=== PATIENT | male | born 1990 | race Caucasian/White ===

== ENCOUNTER 2016-07-24 17:25 | Emergency (ER) | payer OTHER ==
--- NOTE | 2016-07-24 17:47 | ED ---
General Adult HPI - General Stated complaint: left rib pain Time Seen by Provider: 07/24/16 17:36 Source: RN notes reviewed - History of Present Illness Initial comments: 25-year-old male presents emergency Department chief complaint of left-sided chest wall pain. Patient was moving a dresser and he came down and fell onto the left side of his chest. Patient states that yesterday. Patient states she' s had pain over the left side of his chest. Patient states it hurts to cough last for brief. Patient states the pain has just Been continuing so he was concerned. They deny any fever or chills. The patient denies any shortness of breath with this. There is no other symptoms at this time.Patient denies any recent fever, chills, shortness of breath, back pain, abdominal pain, nausea vomiting, numbness or tingling, dysuria or hematuria, constipation or diarrhea, headaches or visual changes, or any other current symptoms. - Related Data Previous Rx's Medication Instructions Recorded Hydrocodone/Acetaminophen [[place] 1 each PO Q6HR PRN #20 tab 07/24/16 5-325] Allergies Allergy/AdvReac Type Severity Reaction Status Date / Time ibuprofen [From Motrin] Allergy Rash/Hives Verified 07/24/16 17:54 ketorolac tromethamine Allergy Rash/Hives Verified 07/24/16 17:54 [From Toradol] Penicillins Allergy Anaphylaxis Verified 07/24/16 17:54 tramadol Allergy Itching Verified 07/24/16 17:54 Review of Systems ROS Statement: Those systems with pertinent positive or pertinent negative responses have been documented in the HPI. ROS Other: All systems not noted in ROS Statement are negative. Past Medical History Past Medical History: No Reported History, Cancer Additional Past Medical History / Comment(s): lung and prostate cancer History of Any Multi-Drug Resistant Organisms: None Reported Past Surgical History: Tonsillectomy Additional Past Surgical History / Comment(s): hemrroidectomy x3, Past Psychological History: Bipolar, Schizophrenia Smoking Status: Current every day smoker Past Alcohol Use History: Daily, Occasional Past Drug Use History: Marijuana General Exam - General Exam Comments Initial Comments: General: The patient is awake and alert, in no distress, and does not appear acutely ill. Eye: Pupils are equal, round. Ears, nose, mouth and throat: There are moist mucous membranes and no oral lesions. Neck: The neck is supple, there is no tenderness Chest wall: There is tenderness in left lower chest wall no bruising or deformity noted. Cardiovascular: There is a regular rate and rhythm. No murmur, rub or gallop is appreciated. Respiratory: Lungs are clear to auscultation, respirations are non-labored, breath sounds are equal. No wheezes, stridor, rales, or rhonchi. Gastrointestinal: Soft, non-distended, non-tender abdomen without masses or organomegaly noted. There is no rebound or guarding present. No CVA tenderness. Bowel sounds are unremarkable. Back: There is no tenderness to palpation in the midline. There is no obvious deformity. No rashes noted. Musculoskeletal: Normal ROM, no tenderness, There is no pedal edema. There is no calf tenderness or swelling. Sensation intact. Pulses equal bilaterally 2+. Neurological: CN II-XII intact, There are no obvious motor or sensory deficits. Coordination appears grossly intact. Speech is normal. Skin: Skin is warm and dry and no rashes or lesions are noted. Psychiatric: Cooperative, appropriate mood & affect, normal judgment. Course Vital Signs 07/24/16 07/24/16 17:35 18:47 Temperature 99.2 F 98.7 F Pulse Rate 62 98 Respiratory 20 20 Rate Blood Pressure 134/88 137/86 O2 Sat by Pulse 99 100 Oximetry Medical Decision Making - Medical Decision Making 25-year-old male presents to emergency room chief complaint of left-sided chest wall pain. This time patient's x-ray. Chest x-ray shows a left rib fracture. This time we will start patient on pain medication. We did discuss return parameters and follow-up. We discussed all the patient's family's questions. He stated they understood. This time patient will be discharged home. - Radiology Data Radiology results: report reviewed, image reviewed Disposition Clinical Impression: Left rib fracture Disposition: HOME SELF-CARE Condition: Stable Instructions: Rib Fracture (ED) Additional Instructions: Please use medication as discussed. Please follow up with family doctor if symptoms have not improved over the next two days. Please return to the emergency room if your symptoms increase or worsen or for any other concerns. Prescriptions: Hydrocodone/Acetaminophen [[place] 5-325] 1 each PO Q6HR PRN #20 tab PRN Reason: Pain Referrals: Cait Oquendo MD [STAFF PHYSICIAN] - 1-2 days Time of Disposition: 19:33
[2016-07-24 19:18] VITALS: TEMP 98.7
--- NOTE | 2016-07-24 19:31 | XR ---
EXAMINATION TYPE: XR ribs LT w pa chest xray DATE OF EXAM: 07/24/2016 5:51 PM COMPARISON: NONE HISTORY: Left anterior lower rib pain after trauma TECHNIQUE: 6 views were obtained. FINDINGS: On one of the views there is a subtle cortical step-off at the outer cortex of the anterola teral seventh rib with associated soft tissue swelling, consistent with nondisplaced fracture. There is no pneumothorax. No pleural effusion. No other findings. IMPRESSION: Nondisplaced left seventh anterolateral rib fracture.
[2016-07-24 19:39] VITALS: BP 121/77; PULSE 78; RESP 16
== END 2016-07-24 19:39 | disposition home or self-care (01) ==
LOC: EC 17:25
DX: S22.32XA Fracture of one rib, left side, initial encounter for closed fracture (principal); W22.8XXA Striking against or struck by other objects, initial encounter; Z88.0 Allergy status to penicillin; Z88.6 Allergy status to analgesic agent; Z85.46 Personal history of malignant neoplasm of prostate; F17.200 Nicotine dependence, unspecified, uncomplicated
CPT/HCPCS: 99283

== ENCOUNTER 2017-02-15 11:43 | Emergency (ER) | payer OTHER ==
[2017-02-15 11:58] VITALS: RESP 16; TEMP 98
[2017-02-15] MEDS ORDERED: SODIUM CHLORIDE 0.9% 1,000 ML IV STA (12:20)
[2017-02-15] MEDS ORDERED: ONDANSETRON 4 MG/2 ML VIAL IVP STA (12:20)
--- NOTE | 2017-02-15 12:21 | ED ---
General Adult HPI - General Chief complaint: Abdominal Pain Stated complaint: poss kidney infection Time Seen by Provider: 02/15/17 12:09 Source: patient, RN notes reviewed Mode of arrival: ambulatory Limitations: no limitations - History of Present Illness Initial comments: Patient 26-year-old male who presents emergency room today with chief complaint of symptoms of dysuria. He does admit that over the last 3 days she's been having some burning on urination. He does admit that he went to a walk-in clinic was told that he had a urinary tract infection but was unsure if it could be possible kidney stone. He states that he was advised that if symptoms increase the patient come to the emergency room. He does admit that he is having increased pain in his lower back. He doesn't that he's had some radiation around down to the lower testicles bilaterally. He states the pain does seem to come and go. He does admit that is still expressing dysuria. He admits to feeling nauseated. States felt lightheaded at times. Denies any other complaints or symptoms at this time. Patient denies any recent fever, chills, shortness of breath, chest pain, vomiting, numbness or tingling, hematuria, constipation or diarrhea, headaches or visual changes, or any other complaints. - Related Data Home Medications Medication Instructions Recorded Confirmed Ciprofloxacin HCl [Cipro] 500 mg PO Q12HR 02/15/17 02/15/17 Ibuprofen [Motrin] 800 mg PO DAILY PRN 02/15/17 02/15/17 Previous Rx's Medication Instructions Recorded Phenazopyridine [Pyridium] 100 mg PO TID 3 Days 02/15/17 Allergies Allergy/AdvReac Type Severity Reaction Status Date / Time ibuprofen [From Motrin] Allergy Rash/Hives Verified 02/15/17 12:16 ketorolac tromethamine Allergy Rash/Hives Verified 02/15/17 12:16 [From Toradol] Penicillins Allergy Anaphylaxis Verified 02/15/17 12:16 tramadol Allergy Itching Verified 02/15/17 12:16 Review of Systems ROS Statement: Those systems with pertinent positive or pertinent negative responses have been documented in the HPI. ROS Other: All systems not noted in ROS Statement are negative. Past Medical History Past Medical History: No Reported History, Cancer Additional Past Medical History / Comment(s): lung and prostate cancer 2012, heart murmur History of Any Multi-Drug Resistant Organisms: None Reported Past Surgical History: Prostate Surgery, Tonsillectomy Additional Past Surgical History / Comment(s): hemrroidectomy x3, Past Psychological History: Bipolar, Schizophrenia Smoking Status: Current every day smoker Past Alcohol Use History: None Reported Past Drug Use History: Marijuana General Exam - General Exam Comments Initial Comments: General: The patient is awake and alert, in no distress, and does not appear acutely ill. Eye: Pupils are equal, round and reactive to light, extra-ocular movements are intact. No nystagmus. There is normal conjunctiva bilaterally. No signs of icterus. Ears, nose, mouth and throat: There are moist mucous membranes and no oral lesions. Neck: The neck is supple, there is no tenderness or JVD. Cardiovascular: There is a regular rate and rhythm. No murmur, rub or gallop is appreciated. Respiratory: Lungs are clear to auscultation, respirations are non-labored, breath sounds are equal. No wheezes, stridor, rales, or rhonchi. Gastrointestinal: Soft, non-distended, non-tender abdomen without masses or organomegaly noted. There is no rebound or guarding present. No CVA tenderness. Bowel sounds are unremarkable. Musculoskeletal: Normal ROM, no tenderness. Strength 5/5. Sensation intact. Pulses equal bilaterally 2+. Neurological: A&O x 3. CN II-XII intact, There are no obvious motor or sensory deficits. Coordination appears grossly intact. Speech is normal. Skin: Skin is warm and dry and no rashes or lesions are noted. Psychiatric: Cooperative, appropriate mood & affect, normal judgment. Limitations: no limitations Course Vital Signs 02/15/17 11:54 Temperature 98.0 F Pulse Rate 65 Respiratory 16 Rate Blood Pressure 136/76 O2 Sat by Pulse 100 Oximetry Medical Decision Making - Medical Decision Making Patient's a CT abdomen and pelvis reviewed 1. Mild thickening of the distal sigmoid colon. 2. Normal appendix. 3. No acute inflammatory abnormality. 4. Mild thickening of the bladder wall JVD lack of distention. He also secondary to cystitis as read by radiologist Dr. Ackerman. Patient's labs been reviewed does show large amount of white and red cells on urinalysis. Remaining blood work unremarkable. Patient's no elevated white count. No fever here in emergency room. Vitals are stable. Patient currently on antibiotics outpatient of [facility] with one day. Was given dose of Rocephin here in emergency room. Patient states feels comfortable being discharged home will be given both urology and family doctor to follow up with. Advised return to emergency room if there is fever or increase or worsening of symptoms or any other concerns. - Lab Data Result diagrams: 02/15/17 12:30 02/15/17 12:30 Lab Results 02/15/17 02/15/17 02/15/17 Range/Units 12:30 12:30 12:30 WBC 6.1 (3.8-10.6) k/uL RBC 4.80 (4.30-5.90) m/uL Hgb 15.0 (13.0-17.5) gm/dL Hct 43.5 (39.0-53.0) % MCV 90.6 (80.0-100.0) fL MCH 31.3 (25.0-35.0) pg MCHC 34.6 (31.0-37.0) g/dL RDW 13.4 (11.5-15.5) % Plt Count 220 (150-450) k/uL Neutrophils % 65 % Lymphocytes % 21 % Monocytes % 8 % Eosinophils % 3 % Basophils % 0 % Neutrophils # 4.0 (1.3-7.7) k/uL Lymphocytes # 1.3 (1.0-4.8) k/uL Monocytes # 0.5 (0-1.0) k/uL Eosinophils # 0.2 (0-0.7) k/uL Basophils # 0.0 (0-0.2) k/uL Sodium 141 (137-145) mmol/L Potassium 4.4 (3.5-5.1) mmol/L Chloride 105 (98-107) mmol/L Carbon Dioxide 27 (22-30) mmol/L Anion Gap 9 mmol/L BUN 8 L (9-20) mg/dL Creatinine 1.04 (0.66-1.25) mg/dL Est GFR (MDRD) Af Amer >60 (>60 ml/min/1.73 sqM) Est GFR (MDRD) Non-Af >60 (>60 ml/min/1.73 sqM) Glucose 91 (74-99) mg/dL Calcium 9.3 (8.4-10.2) mg/dL Total Bilirubin 0.4 (0.2-1.3) mg/dL AST 18 (17-59) U/L ALT 28 (21-72) U/L Alkaline Phosphatase 72 (38-126) U/L Total Protein 6.5 (6.3-8.2) g/dL Albumin 4.1 (3.5-5.0) g/dL Amylase 44 (30-110) U/L Lipase 33 (23-300) U/L Urine Color Red Urine Appearance Turbid (Clear) Urine pH 6.0 (5.0-8.0) Ur Specific [place] 1.020 (1.001-1.035) Urine Protein 2+ H (Negative) Urine Glucose (UA) Negative (Negative) Urine Ketones Negative (Negative) Urine Blood Large H (Negative) Urine Nitrite Negative (Negative) Urine Bilirubin Negative (Negative) Urine Urobilinogen <2.0 (<2.0) mg/dL Ur Leukocyte Esterase Large H (Negative) Urine RBC >182 H (0-5) /hpf Urine WBC >182 H (0-5) /hpf Urine Bacteria Rare H (None) /hpf Urine Mucus Rare H (None) /hpf Disposition Clinical Impression: Cystitis Disposition: HOME SELF-CARE Condition: Good Instructions: Urinary Tract Infection in Men (ED) Additional Instructions: Please use medication as discussed. Please follow-up with family doctor in the next 2 days. Please return to emergency room if the symptoms increase or worsen or for any other concerns. Prescriptions: Phenazopyridine [Pyridium] 100 mg PO TID 3 Days Referrals: None,Stated [Primary Care Provider] - 1-2 days Conor Larsen MD [STAFF PHYSICIAN] - 1-2 days Cait Oquendo MD [STAFF PHYSICIAN] - 1-2 days Time of Disposition: 14:16
[2017-02-15 12:49] LABS: Basophils % (A) 0 %; CH 32.1; CHCM 35.5; Eosinophils # (A) 0.2 k/uL (0-0.7); Eosinophils % (A) 3 %; HCT 43.5 % (39.0-53.0); HDW 2.61; Luc # (Auto) 0.16; Luc % (Auto) 3; Lymphocytes # (A) 1.3 k/uL (1.0-4.8); Lymphocytes % (A) 21 %; MCH 31.3 pg (25.0-35.0); MCHC 34.6 g/dL (31.0-37.0); MCV 90.6 fL (80.0-100.0); Mean Platelet Volume 7.1; Monocytes # (A) 0.5 k/uL (0-1.0); Monocytes % (A) 8 %; Neutrophils % (A) 65 %; RDW 13.4 % (11.5-15.5); WBC 6.1 k/uL (3.8-10.6); WBC (Perox) 6.01
[2017-02-15 12:58] LABS: ALT 28 U/L (21-72); AST 18 U/L (17-59); Alkaline Phosphatase 72 U/L (38-126); Amylase 44 U/L (30-110); Anion Gap 9 mmol/L; Blood Urea Nitrogen 8 mg/dL (9-20); Calcium 9.3 mg/dL (8.4-10.2); Carbon Dioxide 27 mmol/L (22-30); Chloride 105 mmol/L (98-107); Glucose 91 mg/dL (74-99); Non-African American GFR(MDRD) >60 (>60 ml/min/1.73 sqM); Potassium 4.4 mmol/L (3.5-5.1); Sodium 141 mmol/L (137-145); Total Bilirubin 0.4 mg/dL (0.2-1.3); Total Protein 6.5 g/dL (6.3-8.2)
[2017-02-15 12:59] LABS: Appearance,Urine Turbid (Clear); Bacteria,Urine Rare /hpf; Bilirubin,Urine Negative (Negative); Glucose,Urine (UA) Negative (Negative); Ketones,Urine Negative (Negative); Leukocyte Esterase,Urine Large (Negative); Mucus,Urine Rare /hpf; Nitrite,Urine Negative (Negative); Particle Count 6828; Protein,Urine 2+ (Negative); RBC,Urine >182 /hpf (0-5); UA Billing (MACRO vs. MICRO) MICRO; Urobilinogen,Urine <2.0 mg/dL (<2.0); WBC,Urine >182 /hpf (0-5)
[2017-02-15] MEDS ORDERED: cefTRIAXone 2,000 MG in SODIUM CHLORIDE 0.9% 100 ML IVPB STA (13:11)
--- NOTE | 2017-02-15 13:12 | XR ---
EXAMINATION TYPE: XR KUB DATE OF EXAM: 02/15/2017 COMPARISON: NONE HISTORY: Pain TECHNIQUE: Single supine KUB image of the abdomen is obtained FINDINGS: Small bowel demonstrates no evidence for dilatation or air fluid levels. Gas and fecal material is seen in non-distended colon. No convincing evidence for pneumoperitoneum. No unusual calcifications. The lung bases are clear. The osseous structures are intact. IMPRESSION: 1. Overall nonobstructive bowel gas pattern.
--- NOTE | 2017-02-15 13:43 | CT ---
EXAMINATION TYPE: CT abdomen pelvis wo con DATE OF EXAM: 02/15/2017 COMPARISON: NONE HISTORY: Lower abdominal pain CT DLP: 607 mGycm Automated exposure control for dose reduction was used. FINDINGS: Visualized portions of the lungs are clear. There is no pleural or pericardial fluid. The h eart is not enlarged. Within the abdomen, the liver, spleen and gallbladder appear normal. Both adrenal glands appear normal. There is no evidence of hydronephrosis or nephrolithiasis. Limited views of the pancreas are normal. There is no significant retroperitoneal, iliac or inguinal adenopathy. The bladder wall appears mildly thickened. The bladder is not well-distended however. There is some mucosal thickening involving the distal sigmoid colon. The remainder the colon is unrem arkable. The appendix is normal. There is no small bowel dilatation. There is no free fluid and no free air identified. No osseous lesion is seen. IMPRESSION: 1. MILD THICKENING OF THE DISTAL SIGMOID COLON. PLEASE CORRELATE TO EXCLUDE COLITIS. 2. NORMAL APPENDIX. 3. NO ACUTE INFLAMMATORY ABNORMALITY. 4. MILD THICKENING OF BLADDER WALL MAY BE DUE TO LACK OF DISTENTION. IT COULD ALSO BE SECONDARY TO CY STITIS.
[2017-02-15 14:26] VITALS: BP 105/51; PULSE 52
== END 2017-02-15 14:46 | disposition home or self-care (01) ==
LOC: EC 11:43
DX: N30.90 Cystitis, unspecified without hematuria (principal); F17.200 Nicotine dependence, unspecified, uncomplicated; Z85.118 Personal history of other malignant neoplasm of bronchus and lung; Z85.46 Personal history of malignant neoplasm of prostate; Z88.6 Allergy status to analgesic agent; Z88.0 Allergy status to penicillin
CPT/HCPCS: 99284; 96365; 96375; 96361; 36415; 80053; 82150; 83690; 85025; 81001; 87491; 87591; 87086; 74000; 74176; J2405; J0696

== ENCOUNTER 2017-12-05 17:05 | Emergency (ER) | payer OTHER ==
[2017-12-05] MEDS ORDERED: ACETAMINOPHEN TAB 325 MG TAB PO STA (17:36)
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
--- NOTE | 2017-12-05 18:15 | XR ---
EXAMINATION TYPE: XR ribs LT w pa chest xray DATE OF EXAM: 12/05/2017 COMPARISON: NONE HISTORY: Pain TECHNIQUE: Single view of the chest 4 views of the ribs are submitted. FINDINGS: The lungs are clear. No Evidence for pneumothorax. No evidence for focal contusion. Medi astinal structures are midline. Evaluation of the ribs fails to demonstrate evidence for displaced r ib fracture or secondary sign of rib fracture. Healed left clavicular fracture identified. IMPRESSION: Negative study
[2017-12-05 19:02] VITALS: BP 133/78; PULSE 84; RESP 18; TEMP 98.7
== END 2017-12-05 18:15 | disposition home or self-care (01) ==
LOC: EC 17:05
DX: S20.212A Contusion of left front wall of thorax, initial encounter (principal); F17.200 Nicotine dependence, unspecified, uncomplicated; Z85.46 Personal history of malignant neoplasm of prostate; Z85.118 Personal history of other malignant neoplasm of bronchus and lung; Z88.0 Allergy status to penicillin; Z88.6 Allergy status to analgesic agent; W20.8XXA Other cause of strike by thrown, projected or falling object, initial encounter; Y93.89 Activity, other specified; Y92.89 Other specified places as the place of occurrence of the external cause
CPT/HCPCS: 93005; 96374; 99285

== ENCOUNTER 2018-08-23 14:58 | Emergency (ER) | payer OTHER ==
[2018-08-23 15:04] VITALS: BP 146/70
[2018-08-23 15:20] VITALS: RESP 16
[2018-08-23] MEDS ORDERED: ACETAMINOPHEN TAB 500 MG TAB PO STA (15:48)
[2018-08-23] MEDS ORDERED: LIDOCAINE 5% PATCH TOPICAL ONE (15:49)
--- NOTE | 2018-08-23 15:54 | ED ---
General Adult HPI - General Chief complaint: Chest Pain Stated complaint: Chest pain Time Seen by Provider: 08/23/18 15:05 Source: patient, RN notes reviewed Mode of arrival: ambulatory Limitations: no limitations - History of Present Illness Initial comments: Patient is a 28-year-old male with history of lung cancer status post treatment who presents to the emergency department with complaint of chest pain that started 2 weeks ago. He reports the pain is primarily in 2 locations on the right side of his chest. He describes it as sharp and reports that it is always there, but worse with taking a deep breath, coughing, sneezing or twisting. It is better when he uses a heating pad. He denies any injury occurring prior to this starting. He reports taking Tylenol for pain control, last dose was yesterday. He reports going to [facility] 5 days ago where his chest x-ray was normal and he was diagnosed with pleurisy and prescribed Medrol Dosepak, per patient. He reports having a heart murmur in the past. Patient denies any recent fever, chills, shortness of breath, heart palpitations, back pain, abdominal pain, nausea or vomiting, numbness or tingling, headaches or visual changes, or any other complaints. - Related Data Home Medications Medication Instructions Recorded Confirmed methylPREDNISolone [Medrol Dose See Taper PO DIRECTED 08/23/18 08/23/18 Pack] Allergies Allergy/AdvReac Type Severity Reaction Status Date / Time ibuprofen [From Motrin] Allergy Rash/Hives Verified 08/23/18 15:24 ketorolac tromethamine Allergy Rash/Hives Verified 08/23/18 15:24 [From Toradol] Penicillins Allergy Anaphylaxis Verified 08/23/18 15:24 tramadol Allergy Itching Verified 08/23/18 15:24 Review of Systems ROS Statement: Those systems with pertinent positive or pertinent negative responses have been documented in the HPI. ROS Other: All systems not noted in ROS Statement are negative. Past Medical History Past Medical History: Cancer Additional Past Medical History / Comment(s): lung and prostate cancer 2012, heart murmur History of Any Multi-Drug Resistant Organisms: None Reported Past Surgical History: Prostate Surgery, Tonsillectomy Additional Past Surgical History / Comment(s): hemrroidectomy x3, Past Psychological History: Bipolar, Schizophrenia Smoking Status: Current every day smoker Past Alcohol Use History: None Reported Past Drug Use History: Marijuana General Exam Limitations: no limitations General appearance: alert, in no apparent distress Head exam: Present: atraumatic, normocephalic Eye exam: Present: normal appearance, PERRL ENT exam: Present: normal oropharynx, TM's normal bilaterally, normal external ear exam Neck exam: Present: normal inspection. Absent: lymphadenopathy Respiratory exam: Present: normal lung sounds bilaterally, chest wall tenderness. Absent: wheezes, rales, rhonchi Cardiovascular Exam: Present: regular rate, normal rhythm Neurological exam: Present: alert, oriented X3 Skin exam: Present: warm, dry Course Vital Signs 08/23/18 08/23/18 08/23/18 15:02 15:16 17:40 Temperature 98.2 F 97.8 F Pulse Rate 75 56 L Respiratory 20 16 16 Rate Blood Pressure 146/70 O2 Sat by Pulse 99 99 Oximetry EKG Findings - EKG Comments: EKG Findings:: EKG on 08/23/2018: Vent. rate 45 bpm. [place] interval 170 ms. QRS duration 92 ms. QT/QTc 436/377 ms. P-R-T axes 78 69 72. Sinus bradycardia. Unchanged from prior EKG on 12/05/2017. Medical Decision Making - Medical Decision Making Chest x-ray is negative. EKG is unchanged from prior EKG on 12/05/2017. This is likely muscular pain. Case discussed in detail with attending physician Dr. Marte. Disposition Clinical Impression: Chest pain, muscular Disposition: HOME SELF-CARE Condition: Good Instructions (If sedation given, give patient instructions): Chest Pain (ED) Additional Instructions: Follow-up with your PCP in 1 to 2 days. Return to the emergency department if your symptoms worsen or other concerns. Is patient prescribed a controlled substance at d/c from ED?: No Referrals: None,Stated [Primary Care Provider] - 1-2 days Cait Oquendo MD [STAFF PHYSICIAN] - 1-2 days Time of Disposition: 17:29
--- NOTE | 2018-08-23 16:15 | XR ---
EXAMINATION TYPE: XR chest 2V DATE OF EXAM: 08/23/2018 COMPARISON: 12/05/2017 HISTORY: 28-year-old male right-sided pain TECHNIQUE: PA and lateral views FINDINGS: The cardiomediastinal silhouette, aorta, and pulmonary vasculature are within normal limits. Lungs an d pleural spaces are clear. IMPRESSION: No acute cardiopulmonary process.
[2018-08-23 17:45] VITALS: PULSE 56; TEMP 97.8
== END 2018-08-23 17:40 | disposition home or self-care (01) ==
LOC: EC 14:58
DX: R07.89 Other chest pain (principal); F17.200 Nicotine dependence, unspecified, uncomplicated; Z79.51 Long term (current) use of inhaled steroids; Z88.0 Allergy status to penicillin; Z88.5 Allergy status to narcotic agent; Z88.6 Allergy status to analgesic agent; Z85.118 Personal history of other malignant neoplasm of bronchus and lung; Z85.46 Personal history of malignant neoplasm of prostate
CPT/HCPCS: 71046; 93005; 99285

== ENCOUNTER 2021-07-26 12:37 | Emergency (ER) | payer OTHER ==
[2021-07-26 12:43] VITALS: TEMP 99.2
[2021-07-26] MEDS ORDERED: SODIUM CHLORIDE 0.9% 1,000 ML IV STA (12:58)
--- NOTE | 2021-07-26 13:07 | ED ---
General Adult HPI - General Chief complaint: Seizure Stated complaint: Seizure Time Seen by Provider: 07/26/21 12:45 Source: patient, RN notes reviewed, old records reviewed Mode of arrival: ambulatory Limitations: no limitations - History of Present Illness Initial comments: 30-year-old male presenting for evaluation of possible seizure. Patient denies current diagnosis seizure. He states he had some possible seizure as a child and adolescent which was reported to be related to panic attacks. He states that he stood from the couch and remembers feeling lightheaded and passed out. Was transported by EMS. He is alert and oriented to time my evaluation. Denies significant head injury or headache. Denies focal numbness or weakness. Not currently on any antiseizure medication. - Related Data Home Medications Medication Instructions Recorded Confirmed methylPREDNISolone [Medrol Dose See Taper PO DIRECTED 08/23/18 08/23/18 Pack] Allergies Allergy/AdvReac Type Severity Reaction Status Date / Time ibuprofen [From Motrin] Allergy Rash/Hives Verified 07/26/21 12:43 ketorolac tromethamine Allergy Rash/Hives Verified 07/26/21 12:43 [From Toradol] Penicillins Allergy Anaphylaxis Verified 07/26/21 12:43 tramadol Allergy Itching Verified 07/26/21 12:43 Review of Systems ROS Statement: Those systems with pertinent positive or pertinent negative responses have been documented in the HPI. ROS Other: All systems not noted in ROS Statement are negative. Past Medical History Past Medical History: Cancer, Seizure Disorder Additional Past Medical History / Comment(s): lung and prostate cancer 2012, heart murmur History of Any Multi-Drug Resistant Organisms: None Reported Past Surgical History: Prostate Surgery, Tonsillectomy Additional Past Surgical History / Comment(s): hemrroidectomy x3, Past Psychological History: Bipolar, Schizophrenia Smoking Status: Current every day smoker Past Alcohol Use History: None Reported Past Drug Use History: Marijuana General Exam Limitations: no limitations General appearance: alert, in no apparent distress Head exam: Present: atraumatic, normocephalic Eye exam: Present: normal appearance, PERRL ENT exam: Present: normal exam Neck exam: Present: normal inspection. Absent: tenderness, meningismus Respiratory exam: Present: normal lung sounds bilaterally. Absent: respiratory distress, wheezes Cardiovascular Exam: Present: regular rate, normal rhythm GI/Abdominal exam: Present: soft. Absent: distended, tenderness, guarding Extremities exam: Present: normal inspection, normal capillary refill. Absent: pedal edema Neurological exam: Present: alert, oriented X3, CN II-XII intact. Absent: motor sensory deficit Psychiatric exam: Present: normal affect, normal mood Skin exam: Present: warm, dry, intact. Absent: cyanosis, diaphoretic Course Vital Signs 07/26/21 12:39 Temperature 99.2 F Pulse Rate 73 Respiratory 18 Rate Blood Pressure 136/79 O2 Sat by Pulse 97 Oximetry EKG Findings - EKG Comments: EKG Findings:: EKG: Sinus bradycardia rate of 58, VT interval 176, QRS duration 90, QTC 408 Medical Decision Making - Medical Decision Making 30-year-old male with possibility of new onset seizure. Patient well-appearing without focal neurologic findings. He is in sinus rhythm. He has stable blood pressure. He has normal neurologic exam. Patient has normal CBC, CMP showing a CO2 of 19, this may reflect some acidosis secondary to seizure. He has urina lysis showing 2+ ketones. Patient is informed that this may have been new onset seizure and that he should follow-up as an outpatient. He should not drive. He should not go on ladders or put himself at risk if he were to have a second seizure. Return parameters discussed. - Lab Data Result diagrams: 07/26/21 13:14 07/26/21 13:14 Lab Results 07/26/21 07/26/21 Range/Units 13:14 13:14 WBC 4.1 (3.8-10.6) k/uL RBC 4.83 (4.30-5.90) m/uL Hgb 15.5 (13.0-17.5) gm/dL Hct 46.5 (39.0-53.0) % MCV 96.1 (80.0-100.0) fL MCH 32.2 (25.0-35.0) pg MCHC 33.5 (31.0-37.0) g/dL RDW 12.5 (11.5-15.5) % Plt Count 214 (150-450) k/uL MPV 6.9 Neutrophils % 72 % Lymphocytes % 18 % Monocytes % 8 % Eosinophils % 2 % Basophils % 1 % Neutrophils # 2.9 (1.3-7.7) k/uL Lymphocytes # 0.7 L (1.0-4.8) k/uL Monocytes # 0.3 (0-1.0) k/uL Eosinophils # 0.1 (0-0.7) k/uL Basophils # 0.0 (0-0.2) k/uL Sodium 137 (137-145) mmol/L Potassium 4.6 (3.5-5.1) mmol/L Chloride 108 H (98-107) mmol/L Carbon Dioxide 19 L (22-30) mmol/L Anion Gap 10 mmol/L BUN 12 (9-20) mg/dL Creatinine 0.92 (0.66-1.25) mg/dL Est GFR (CKD-EPI)AfAm >90 (>60 ml/min/1.73 sqM) Est GFR (CKD-EPI)NonAf >90 (>60 ml/min/1.73 sqM) Glucose 92 (74-99) mg/dL Calcium 9.0 (8.4-10.2) mg/dL Magnesium 2.0 (1.6-2.3) mg/dL Total Bilirubin 1.0 (0.2-1.3) mg/dL AST 36 (17-59) U/L ALT 22 (4-49) U/L Alkaline Phosphatase 52 (38-126) U/L Total Protein 6.9 (6.3-8.2) g/dL Albumin 4.4 (3.5-5.0) g/dL Disposition Clinical Impression: New onset seizure Disposition: HOME SELF-CARE Condition: Good Instructions (If sedation given, give patient instructions): Seizure/Epilepsy Discharge Instructions & Follow-Up, New-Onset Seizure in Adults (ED) Is patient prescribed a controlled substance at d/c from ED?: No Referrals: None,Stated [Primary Care Provider] - 1-2 days Kota Shaikh MD [REFERRING] - 1-2 days Delfino Bravo DO [STAFF PHYSICIAN] - 1-2 days Time of Disposition: 14:23
[2021-07-26 13:28] LABS: Basophils % (A) 1 %; Eosinophils # (A) 0.1 k/uL (0-0.7); Eosinophils % (A) 2 %; HCT 46.5 % (39.0-53.0); HGB 15.5 gm/dL (13.0-17.5); Lymphocytes # (A) 0.7 k/uL (1.0-4.8); Lymphocytes % (A) 18 %; MCH 32.2 pg (25.0-35.0); MCHC 33.5 g/dL (31.0-37.0); MCV 96.1 fL (80.0-100.0); Mean Platelet Volume 6.9; Monocytes # (A) 0.3 k/uL (0-1.0); Monocytes % (A) 8 %; Neutrophils # (A) 2.9 k/uL (1.3-7.7); Neutrophils % (A) 72 %; Platelet Count 214 k/uL (150-450); RBC 4.83 m/uL (4.30-5.90); RDW 12.5 % (11.5-15.5); WBC 4.1 k/uL (3.8-10.6)
[2021-07-26 13:45] LABS: ALT 22 U/L (4-49); African American GFR (CKD) >90 (>60 ml/min/1.73 sqM); Albumin 4.4 g/dL (3.5-5.0); Anion Gap 10 mmol/L; Blood Urea Nitrogen 12 mg/dL (9-20); Carbon Dioxide 19 mmol/L (22-30); Chloride 108 mmol/L (98-107); Glucose 92 mg/dL (74-99); Non-African American GFR(CKD) >90 (>60 ml/min/1.73 sqM); Sodium 137 mmol/L (137-145); Total Protein 6.9 g/dL (6.3-8.2)
[2021-07-26 13:52] LABS: AST 36 U/L (17-59); Alkaline Phosphatase 52 U/L (38-126); Potassium 4.6 mmol/L (3.5-5.1)
--- NOTE | 2021-07-26 13:58 | CT ---
EXAMINATION TYPE: CT brain wo con DATE OF EXAM: 07/26/2021 COMPARISON: CT brain June 13, 2014 HISTORY: Seizure CT DLP: 1095.4 mGycm. Automated Exposure Control for Dose Reduction was Utilized. TECHNIQUE: CT scan of the head is performed without contrast. FINDINGS: There is no acute intracranial hemorrhage, mass effect, or midline shift identified. The ventricles and sulci are within normal limits in size. Moran-white matter differentiation is maintain ed. Mild mucosal thickening and patchy opacification ethmoid sinuses bilaterally redemonstrated. Nonp neumatized right mastoid air cells redemonstrated. The calvarium is intact. The globes are intact flip aterally. IMPRESSION: No acute intracranial hemorrhage or midline shift is seen. No significant change from pr ior CT.
[2021-07-26 14:06] LABS: Appearance,Urine Clear (Clear); Bilirubin,Urine Negative (Negative); Blood,Urine Negative (Negative); Color,Urine Yellow; Glucose,Urine (UA) Negative (Negative); Ketones,Urine 2+ (Negative); Leukocyte Esterase,Urine Negative (Negative); Nitrite,Urine Negative (Negative); PH, Urine 6.5 (5.0-8.0); Protein,Urine Trace (Negative); Specific Gravity,Urine 1.028 (1.001-1.035)
[2021-07-26 14:46] VITALS: BP 131/86; PULSE 88; RESP 16
== END 2021-07-26 14:39 | disposition home or self-care (01) ==
LOC: EC 12:37
DX: R56.9 Unspecified convulsions (principal); F31.9 Bipolar disorder, unspecified; F17.200 Nicotine dependence, unspecified, uncomplicated; F12.90 Cannabis use, unspecified, uncomplicated; Z88.0 Allergy status to penicillin; Z88.1 Allergy status to other antibiotic agents; Z88.6 Allergy status to analgesic agent; Z85.46 Personal history of malignant neoplasm of prostate
CPT/HCPCS: 36415; 70450; 80053; 81003; 83735; 85025; 93005; 96360; 99285